=== PATIENT | male | born 1965 | race Caucasian/White ===

== ENCOUNTER → 2021-12-29 13:24 | Outpatient (BNVA) | payer OTHER, BC, SELFPAY | PROVIDERS: Visit Provider Family Medicine | DX: S59.902A Unspecified injury of left elbow, initial encounter (principal); W19.XXXA Unspecified fall, initial encounter | CPT/HCPCS: 73080 ==

== ENCOUNTER → 2022-09-20 13:02 | Outpatient (BNVA) | payer SELFPAY | PROVIDERS: PCP Family Medicine; Visit Provider Registered Nurse Neonatal Intensive Care | DX: M17.11 Unilateral primary osteoarthritis, right knee (principal); M25.561 Pain in right knee | CPT/HCPCS: 73562 ==

== ENCOUNTER → 2024-06-18 15:29 | Outpatient (BNVA) | payer SELFPAY | DX: I10 Essential (primary) hypertension (principal); R35.1 Nocturia | CPT/HCPCS: 80053; 80061; 83036; 84443; 85025; G0103 ==

== ENCOUNTER 2024-07-30 17:16 | Emergency (ER) | payer SELFPAY ==
[2024-07-30] VITALS (7 sets, daily range): BP systolic 185–223; BP diastolic 104–123; PULSE 60–71; RESP 16–18; TEMP 36.9; O2SAT 96–98; BMI 31.6
--- NOTE | 2024-07-30 17:17 | XRR_ITS ---
PROCEDURE INFORMATION: Exam: XR Chest Exam date and time: 07/30/2024 5:37 PM Age: 59 years old Clinical indication: Dyspnea; Additional info: Cp, uneasy feeling in chest TECHNIQUE: Imaging protocol: Radiologic exam of the chest. Views: 1 view. COMPARISON: CT kidney stone [id number] 03/06/2019 8:53 AM FINDINGS: Lungs: Unremarkable. No consolidation. Pleural spaces: Unremarkable. No pleural effusion. No pneumothorax. Heart/Mediastinum: Magnified by technique, likely mild cardiomegaly. PA and lateral views would be helpful for further assessment. Bones/joints: Unremarkable. XR/XR chest 1V portable [id number] IMPRESSION: Probable mild cardiomegaly. No other significant plain radiographic abnormality.
--- NOTE | 2024-07-30 17:23 | ECG_ITS ---
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 Measurements Intervals [place] Rate: 69 P: 28 SC: 154 QRS: -15 QRSD: 90 T: 30 QT: 376 QTc: 405 Interpretive Statements SINUS RHYTHM No previous ECG available for comparison Electronically Signed On 07-31-2024 21:16:44 PRODUCTION POTTER by Natanael Rodriguez M.D. [id number]
--- NOTE | 2024-07-30 17:32 | CTR_ITS ---
PROCEDURE INFORMATION: Exam: CT Lumbar Spine Without Contrast Exam date and time: 07/30/2024 6:26 PM Age: 59 years old Clinical indication: Numbness; Additional info: Rightt arm and leg numbness TECHNIQUE: Imaging protocol: Computed tomography of the lumbar spine without contrast. Radiation optimization: All CT scans at this facility use at least one of these dose optimization techniques: automated exposure control; mA and/or kV adjustment per patient size (includes targeted exams where dose is matched to clinical indication); or iterative reconstruction. COMPARISON: CT kidney stone [id number] 03/06/2019 8:53 AM RADIATION DOSE METRICS: Total DLP (mGy-cm): 1030.22 FINDINGS: Bones/joints: moderate sclerosis of the right SI joint is unchanged from 03/06/2019. Mild involvement of the left SI joint also noted. Mild levoscoliosis at L3 level is unchanged. L1-L2: Mild annular disc bulge, facet arthropathy and ligamentum hypertrophy contributing to mild central canal and bilateral foraminal stenosis. L2-L3: Moderate annular disc bulge and mild facet arthropathy and ligamentum hypertrophy contributing to moderate to high-grade central canal stenosis and subarticular stenosis with shpk-fz-vvaaucox foraminal stenosis and abutment of the exiting right L2 nerve root. L3-L4: Moderate calcified disc osteophyte complex and ligamentum hypertrophy as well as mild facet arthropathy resulting in moderate to high-grade canal stenosis and right greater than left foraminal stenosis with a abutment of the exiting L3 roots especially on the right. L4-L5: Tvkc-wt-ksbmlggc annular disc bulge and ligamentum hypertrophy and mild facet arthropathy contributing to moderate high-grade central canal stenosis and right greater than left foraminal stenosis abutment of the exiting nerve roots. L5-S1: Mild to moderate calcified disc osteophyte complex and facet arthropathy resulting in eguu-vq-nofubqqk canal stenosis, moderate left greater than right subarticular recess and foraminal stenosis with abutment of the exiting nerve roots. Pancreas: Partially imaged moderate punctate calcific pancreatitis similar to the prior study. Kidneys and ureters: 2.3 x 1.9 cm partially exophytic simple cyst in the upper pole of the right kidney is mildly enlarged compared to 03/06/2019. Additional partially exophytic 1.2 x 1.1 cm cyst in the upper pole has also enlarged. Vasculature: Knqv-oz-kvvqtquv atherosclerotic involvement of the renal arteries and celiac trunk and SMA ostia. Soft tissues: Unremarkable. CT/CT lumbar spine wo con* [id number] IMPRESSION: 1. Multilevel degenerative endplate spurring, annular disc bulges and ligamentum hypertrophy with moderate to high-grade canal and foraminal stenosis with abutment of exiting nerve roots from L2-S1 levels. The findings appear further progressed from 03/06/2019 CT. 2. Mild stable scoliosis and other chronic findings detailed above. COMMENTS: Consistent with the [employer]'s Incidental Findings Committee white paper (J Am Teresita Radiol 2018): Any incidental renal lesion less than 1 cm or classified as too small to characterize, or any incidental cystic renal lesion characterized as simple-appearing, is likely benign. No follow-up imaging is recommended for these lesions per consensus recommendations based on imaging criteria.
--- NOTE | 2024-07-30 17:32 | CTR_ITS ---
PROCEDURE INFORMATION: Exam: CT Head Without Contrast Exam date and time: 07/30/2024 6:22 PM Age: 59 years old Clinical indication: Weakness, extremity; Right; Additional info: Possible stroke TECHNIQUE: Imaging protocol: Computed tomography of the head without contrast. Radiation optimization: All CT scans at this facility use at least one of these dose optimization techniques: automated exposure control; mA and/or kV adjustment per patient size (includes targeted exams where dose is matched to clinical indication); or iterative reconstruction. COMPARISON: No relevant prior studies available. RADIATION DOSE METRICS: Total DLP (mGy-cm): 1131.38 FINDINGS: Brain: Right internal capsule anterior limb chronic lacunar infarct. Moderate diffuse white matter disease likely reflecting chronic microvascular ischemic changes. Cerebral ventricles: No ventriculomegaly. Paranasal sinuses: Paranasal sinus opacifications. Mastoid air cells: Visualized mastoid air cells are well aerated. Bones: Unremarkable. No acute fracture. Soft tissues: Right posterior scalp soft tissue swelling. CT/CT head wo con* [id number] IMPRESSION: 1. Negative for intracranial hemorrhage or mass effect. 2. Right internal capsule anterior limb chronic lacunar infarct. 3. Right posterior scalp soft tissue swelling. 4. Moderate diffuse white matter disease likely reflecting chronic microvascular ischemic changes. 5. Paranasal sinus opacifications.
--- NOTE | 2024-07-30 17:38 | W.ED.CHESTPA ---
HPI - Chest Pain General: Chief Complaint: Chest Pain Stated Complaint: chest pain Time Seen by Provider: 07/30/24 17:26 History of Present Illness: 59-year-old male with history of anxiety, depression and hypertension who presents to the emergency room with right sided chest pain and tingling in his right arm and right leg. This has been going on since 9 AM today. So approximately 8 hours. He is quite hypertensive on presentation. He is not having cough. No headache. No altered mental status. No slurred speech. No focal motor deficits. He is not short of breath. No abdominal pain. No nausea or vomiting. Related Data Previous Rx's Medication Instructions Recorded doxycycline hyclate 100 mg tablet 100 mg PO BID 14 days #28 tabs 06/05/24 citalopram 10 mg tablet (Celexa) 10 mg PO DAILY #30 tabs 06/18/24 hydroxyzine HCl 25 mg tablet 25 mg PO Q6H PRN anxiety #90 tabs 06/18/24 lisinopril 10 mg tablet 10 mg PO DAILY #30 tabs 06/18/24 terbinafine HCl 1 % topical cream 1 applic topical BID #15 grams 06/18/24 (Antifungal (terbinafine)) clonidine HCl 0.1 mg tablet 0.1 mg PO Q8H PRN hypertensive 07/30/24 emergency #20 tabs Allergies Allergy/AdvReac Type Severity Reaction Status Date / Time No Known Allergies Allergy Verified 06/18/24 14:45 Review of Systems Narrative: Constitutional symptoms: Negative except as documented in HPI. Skin symptoms: Negative except as documented in HPI. Eye symptoms: Negative except as documented in HPI. ENMT symptoms: Negative except as documented in HPI. Respiratory symptoms: Negative except as documented in HPI. Cardiovascular symptoms: Negative except as documented in HPI. Gastrointestinal symptoms: Negative except as documented in HPI. Genitourinary symptoms: Negative except as documented in HPI. Musculoskeletal symptoms: Negative except as documented in HPI. Neurologic symptoms: Negative except as documented in HPI. Psychiatric symptoms: Negative except as documented in HPI. Endocrine symptoms: Negative except as documented in HPI. [facility] PFSH: Medical History Tinea corporis Nocturia Hypertension Anxiety Rash of face Social History Smoking and tobacco/nicotine status: current every day tobacco/nicotine user Alcohol intake: never Substance/Drug Use: never Adopted: No Physical Exam Narrative: EXAM NARRATIVE: General: Alert, no acute distress. Skin: Warm, dry. Head: Normocephalic, atraumatic. Neck: Supple, trachea midline. Eye: Extraocular movements are intact. Ears, nose, mouth and throat: mucosa moist. Cardiovascular: Regular, Normal peripheral perfusion. Respiratory: Lungs are clear to auscultation, respirations are non-labored, breath sounds are equal, Symmetrical chest wall expansion. Gastrointestinal: Soft, Nontender, Non distended Musculoskeletal: Normal ROM, no deformity. Neurological: Alert and oriented, No focal neurological deficit observed. Psychiatric: Cooperative, appropriate mood & affect. Course Vital Signs: Vital signs: Vital Signs Temperature 98.5 F 07/30/24 17:31 Pulse Rate 60 07/30/24 19:17 Respiratory Rate 18 07/30/24 19:17 Blood Pressure 185/108 07/30/24 19:57 Pulse Oximetry 98 07/30/24 19:17 Oxygen Delivery Me thod Room Air 07/30/24 17:31 MDM - Chest Pain Medical Decision Making Differential diagnosis for patient with chest pain includes but is not limited to and based on the above HPI, review of systems and physical exam: Pneumonia. unstable angina. angina. Acute coronary syndrome / OK. Pulmonary embolism. Costochondritis / musculoskeletal. Pleurisy. Pericarditis. Esophageal spasm. Pancreatis. Cholecystitis. Orders placed to evaluate differential diagnosis based on the above differential, HPI and physical exam EKG: Time 1723. Rate 69. Normal sinus rhythm, No ST-T changes, no ectopy, normal MS & QRS intervals, This was reviewed and interpreted by myself the ER physician at 1727 Chest x-ray: No acute process. No infiltrate. No pneumothorax. This was reviewed and interpreted by myself the ER physician. CT head: No acute intracranial process. There is a small right-sided lacunar infarct. Discussed this with the patient. No intracranial hemorrhage, no evidence of infarct. no evidence of acute fracture.This was reviewed and interpreted by myself the ER physician. CT of the cervical spine: No fracture. Good alignment. No step-offs. This was reviewed and interpreted by myself the emergency room physician. I also reviewed the radiologist report. CT of the lumbar spine: Extensive degenerative changes. No fracture. Good alignment. No step-offs. This was reviewed and interpreted by myself the emergency room physician. Lab Review: Laboratory results were reviewed and interpreted by myself the emergency room physician. Lab work is unremarkable. No leukocytosis. No anemia. No renal failure. Troponin is negative. Chest pain is right-sided. I reviewed the patient's medical record. Reexamination: Patient remained stable. No increased work of breathing. No altered mental status. No focal motor deficits. Blood pressure has improved some with clonidine. Patient is asymptomatic at discharge. No more pain in his chest. No paresthesia. Assessment and plan: Paresthesia Hypertension Noncardiac chest pain - Discharged home - Discussed plan with patient. Answered any questions. - Evaluation and treatment of this problem were appropriate in the emergency setting. Lab Data 07/30/24 17:47 07/30/24 17:47 Radiology Impressions Chest X-Ray 07/30/24 17:17 IMPRESSION: Probable mild cardiomegaly. No other significant plain radiographic abnormality. Head CT 07/30/24 17:32 IMPRESSION: 1. Negative for intracranial hemorrhage or mass effect. 2. Right internal capsule anterior limb chronic lacunar infarct. 3. Right posterior scalp soft tissue swelling. 4. Moderate diffuse white matter disease likely reflecting chronic microvascular ischemic changes. 5. Paranasal sinus opacifications. Lumbar Spine CT 07/30/24 17:32 IMPRESSION: 1. Multilevel degenerative endplate spurring, annular disc bulges and ligamentum hypertrophy with moderate to high-grade canal and foraminal stenosis with abutment of exiting nerve roots from L2-S1 levels. The findings appear further progressed from 03/06/2019 CT. 2. Mild stable scoliosis and other chronic findings detailed above. COMMENTS: Consistent with the [employer]'s Incidental Findings Committee white paper (J Am Teresita Radiol 2018): Any incidental renal lesion less than 1 cm or classified as too small to characterize, or any incidental cystic renal lesion characterized as simple-appearing, is likely benign. No follow-up imaging is recommended for these lesions per consensus recommendations based on imaging criteria. Cervical Spine CT 07/30/24 18:41 IMPRESSION: Negative for fracture or dislocation. Laboratory Results WBC 8.19 10^3/uL (3.29-11.43) 07/30/24 17:47 RBC 5.75 10^6/uL (3.85-5.65) H 07/30/24 17:47 Hgb 17.80 g/dL (11.27-16.99) H 07/30/24 17:47 Hct 53.4 % (37-53) H 07/30/24 17:47 MCV 92.9 fl (82-101) 07/30/24 17:47 MCH 31.0 pg (27-33) 07/30/24 17:47 MCHC 33.3 g/dL (30-55) 07/30/24 17:47 RDW 13.9 % (12.1-15.1) 07/30/24 17:47 Plt Count 184 10^3/cmm (157-399) 07/30/24 17:47 MPV 10.9 fL (7.4-10.4) H 07/30/24 17:47 Neut % (Auto) 51.7 % 07/30/24 17:47 Lymph % (Auto) 36.4 % 07/30/24 17:47 [place] % (Auto) 7.9 % 07/30/24 17:47 Eos % (Auto) 2.1 % 07/30/24 17:47 Baso % (Auto) 1.5 % 07/30/24 17:47 Neut # (Auto) 4.24 10^3/uL (1.8-7.7) 07/30/24 17:47 Lymph # (Auto) 3.0 10^3/uL (0.8-4.8) 07/30/24 17:47 [place] # (Auto) 0.7 10^3/uL (0.2-0.9) 07/30/24 17:47 Eos # (Auto) 0.2 10^3/uL (0.0-0.8) 07/30/24 17:47 Baso # (Auto) 0.1 10^3/uL (0.0-0.1) 07/30/24 17:47 Nucleated RBC % (auto) 0 % 07/30/24 17:47 Nucleated RBCs # 0.0 /100WBC 07/30/24 17:47 PT 12.90 SECONDS (12.1-14.9) 07/30/24 17:47 INR 0.94 (0.8-1.2) 07/30/24 17:47 Sodium 139 mmol/L (136-145) 07/30/24 17:47 Potassium 4.2 mmol/L (3.5-5.1) 07/30/24 17:47 Chloride 103 mmol/L (98-107) 07/30/24 17:47 Carbon Dioxide 26 mmol/L (22-29) 07/30/24 17:47 Anion Gap 14.2 (5-19) 07/30/24 17:47 BUN 13 mg/dL (6-20) 07/30/24 17:47 Creatinine 0.9 mg/dL (0.7-1.2) 07/30/24 17:47 GFR Calculation 86.4 mL/min (90-130) L 07/30/24 17:47 Glucose 102 mg/dL (65-115) 07/30/24 17:47 Calculated Osmolality 288 mOsm/kg (285-295) 07/30/24 17:47 Calcium 9.3 mg/dL (8.5-10.5) 07/30/24 17:47 Total Bilirubin 0.4 mg/dL (0.15-1.2) 07/30/24 17:47 AST 21 U/L (0-40) 07/30/24 17:47 ALT 29 U/L (0-41) 07/30/24 17:47 Alkaline Phosphatase 102 U/L (40-130) 07/30/24 17:47 Troponin T Baseline 12 ng/L (0-15) 07/30/24 17:47 Total Protein 6.1 g/dL (6.6-8.7) L 07/30/24 17:47 Albumin 4.4 g/dL (3.5-5.2) 07/30/24 17:47 Globulin 1.7 g/dL (1.3-4.6) 07/30/24 17:47 All radiology interpretation(s) finalized by discharge Discharge Plan Discharge Patient Disposition: Home Clinical Impression: Paresthesia, Non-cardiac chest pain, Accelerated hypertension Condition: Stable Prescriptions: New clonidine HCl 0.1 mg tablet 0.1 mg PO Q8H PRN (Reason: hypertensive emergency) Qty: 20 0RF Rx Instructions: For Systolic >185 diastolic >100 No Action doxycycline hyclate 100 mg tablet 100 mg PO BID 14 Days Qty: 28 0RF citalopram [Celexa] 10 mg tablet 10 mg PO DAILY Qty: 30 0RF hydroxyzine HCl 25 mg tablet 25 mg PO Q6H PRN (Reason: anxiety) Qty: 90 2RF lisinopril 10 mg tablet 10 mg PO DAILY Qty: 30 0RF Rx Instructions: start first terbinafine HCl [Antifungal (terbinafine)] 1 % cream 1 applic topical BID Qty: 15 0RF Discharge Orders: Discharge ED (Routine); Ordered 07/30/24 Ordered By: Carmella Grajeda Discharge Diet: Usual diet Discharge Activity: Increase activity as tolerated Patient Instructions: Paresthesia (ED), Hypertension (ED), Noncardiac Chest Pain (ED), Opioid Safety, Pain Management Activity Restrictions/Additional Instructions: Please follow-up with your primary provider in the next few days. You need to discuss findings on the CT of a possible old small stroke. Also you need to discuss your blood pressure. If her blood pressure remains elevated at home you can double your lisinopril to 20 mg daily. Thank you for choosing [facility] for your healthcare needs today. Please realize this is an emergency room and that we are providing you with a medical screening exam and this may not be complete and all inclusive of all the testing and or work up that you may need to determine your ailment or severity of your illness. You have been screened and evaluated and felt safe for discharge. Health conditions do change or evolve sometimes and as such it is important that you follow up with your Primary Doctor to be re checked, 3-5 days is a general good time frame for follow up. You are always welcome to return to the ED for re assessment if your symptoms are worsening or you have new concerns Coding Level of Care Code ED Mine Utility Operator for Lisset Rodriguez
[2024-07-30 18:06] LABS: Basophils # 0.1 10^3/uL (0.0-0.1); Basophils % 1.5 %; Eosinophils # 0.2 10^3/uL (0.0-0.8); Eosinophils % 2.1 %; Hematocrit 53.4 % (37-53); Lymphocytes % 36.4 %; Mean Corpuscular HGB Conc 33.3 g/dL (30-55); Mean Corpuscular Volume 92.9 fl (82-101); Mean Platelet Volume 10.9 fL (7.4-10.4); Monocytes # 0.7 10^3/uL (0.2-0.9); Monocytes % 7.9 %; Neutrophils # 4.24 10^3/uL (1.8-7.7); Neutrophils % 51.7 %; Nucleated Red Blood Cells % 0 %; Platelet Count 184 10^3/cmm (157-399); Red Blood Count 5.75 10^6/uL (3.85-5.65); Red Cell Distribution Width 13.9 % (12.1-15.1); White Blood Count 8.19 10^3/uL (3.29-11.43)
[2024-07-30 18:13] LABS: INR 0.94 (0.8-1.2)
[2024-07-30 18:17] LABS: Troponin(5th) Baseline 12 ng/L (0-15)
[2024-07-30 18:19] LABS: Alanine Aminotransferase 29 U/L (0-41); Albumin Level 4.4 g/dL (3.5-5.2); Alkaline Phosphatase 102 U/L (40-130); Aspartate Amino Transferase 21 U/L (0-40); Blood Urea Nitrogen 13 mg/dL (6-20); Calcium 9.3 mg/dL (8.5-10.5); Carbon Dioxide 26 mmol/L (22-29); Chloride 103 mmol/L (98-107); Creatinine Clr Calc Pharmacy 101.5595; Globulin 1.7 g/dL (1.3-4.6); Glomerular Filtration Rate 86.4 mL/min (90-130); Glucose 102 mg/dL (65-115); Osmolality Calculated 288 mOsm/kg (285-295); Sodium 139 mmol/L (136-145); Total Bilirubin 0.4 mg/dL (0.15-1.2); Total Protein 6.1 g/dL (6.6-8.7)
[2024-07-30 18:20] LABS: Anion Gap 14.2 (5-19); Potassium 4.2 mmol/L (3.5-5.1)
--- NOTE | 2024-07-30 18:41 | CTR_ITS ---
PROCEDURE INFORMATION: Exam: CT Cervical Spine Without Contrast Exam date and time: 07/30/2024 6:57 PM Age: 59 years old Clinical indication: Weakness; Additional info: Fall, neck pain TECHNIQUE: Imaging protocol: Computed tomography of the cervical spine without contrast. Radiation optimization: All CT scans at this facility use at least one of these dose optimization techniques: automated exposure control; mA and/or kV adjustment per patient size (includes targeted exams where dose is matched to clinical indication); or iterative reconstruction. COMPARISON: CT head wo con* [id number] 07/30/2024 6:22 PM RADIATION DOSE METRICS: Total DLP (mGy-cm): 225.47 FINDINGS: Bones/joints: Multilevel moderate to severe largely mid to lower cervical spine disc space narrowing and productive degenerative endplate changes. C2-C3: No significant disc bulge or herniation. No severe spinal canal stenosis. No significant neural foraminal narrowing. C3-C4: No significant disc bulge or herniation. No severe spinal canal stenosis. No significant neural foraminal narrowing. C4-C5: No significant disc bulge or herniation. No severe spinal canal stenosis. No significant neural foraminal narrowing. C5-C6: No significant disc bulge or herniation. No severe spinal canal stenosis. No significant neural foraminal narrowing. C6-C7: No significant disc bulge or herniation. No severe spinal canal stenosis. No significant neural foraminal narrowing. C7-T1: No significant disc bulge or herniation. No severe spinal canal stenosis. No significant neural foraminal narrowing. Lungs: Lung apices are normal. Vasculature: Carotid artery atherosclerotic calcifications. Soft tissues: Unremarkable. CT/CT cervical spin wo con* [id number] IMPRESSION: Negative for fracture or dislocation.
--- NOTE | 2024-07-30 19:17 | ECG_ITS ---
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
[2024-07-30] MEDS: cloNIDine 0.1 mg Tablet PO (19:57)
== END 2024-07-30 20:42 | disposition home or self-care (01) ==
PROVIDERS: Emergency Medicine; Emergency Provider Emergency Medicine
DX: R20.2 Paresthesia of skin (principal); R07.89 Other chest pain; I10 Essential (primary) hypertension; Z72.0 Tobacco use
CPT/HCPCS: 70450; 71045; 72125; 72131; 80053; 84484; 85025; 85610; 93005; 99285

== ENCOUNTER 2024-12-01 22:10 | Emergency (ER) | payer OTHER, SELFPAY ==
[2024-12-01 22:19] VITALS: BP 113/77; PULSE 82; RESP 16; TEMP 36.7; O2SAT 98
--- NOTE | 2024-12-01 22:38 | XRR_ITS ---
PROCEDURE INFORMATION: Exam: XR Chest Exam date and time: 12/01/2024 10:47 PM Age: 59 years old Clinical indication: Other: HX flu weakness; Additional info: Weak TECHNIQUE: Imaging protocol: Radiologic exam of the chest. Views: 1 view. COMPARISON: CR XR chest 1V portable [id number] 07/30/2024 5:37 PM FINDINGS: Lungs: Unremarkable. No consolidation. Pleural spaces: Unremarkable. No pleural effusion. No pneumothorax. Heart/Mediastinum: Unremarkable. No cardiomegaly. Bones/joints: Unremarkable. XR/XR chest 1V portable [id number] IMPRESSION: No acute findings.
--- NOTE | 2024-12-01 22:38 | ECG_ITS ---
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
[2024-12-01] MEDS: sodium chloride 0.9% 1,000 ML 999 ML IV (22:50)
[2024-12-01 22:57] LABS: Basophils # 0.1 10^3/uL (0.0-0.1); Basophils % 0.4 %; Eosinophils # 0.1 10^3/uL (0.0-0.8); Eosinophils % 0.9 %; Hematocrit 51.4 % (37-53); Lymphocytes # 2.4 10^3/uL (0.8-4.8); Lymphocytes % 17.2 %; Mean Corpuscular HGB Conc 33.5 g/dL (30-55); Mean Corpuscular Hemoglobin 30.1 pg (27-33); Mean Corpuscular Volume 89.9 fl (82-101); Mean Platelet Volume 9.9 fL (7.4-10.4); Monocytes # 1.2 10^3/uL (0.2-0.9); Monocytes % 8.7 %; Neutrophils # 9.85 10^3/uL (1.8-7.7); Neutrophils % 71.8 %; Nucleated Red Blood Cells % 0 %; Platelet Count 289 10^3/cmm (157-399); Red Blood Count 5.72 10^6/uL (3.85-5.65); Red Cell Distribution Width 14.4 % (12.1-15.1); White Blood Count 13.71 10^3/uL (3.29-11.43)
[2024-12-01 23:16] LABS: Alanine Aminotransferase 37 U/L (0-41); Albumin Level 3.3 g/dL (3.5-5.2); Alkaline Phosphatase 148 U/L (40-130); Anion Gap 18.5 (5-19); Aspartate Amino Transferase 21 U/L (0-40); Blood Urea Nitrogen 24 mg/dL (6-20); Calcium 8.9 mg/dL (8.5-10.5); Carbon Dioxide 25 mmol/L (22-29); Chloride 93 mmol/L (98-107); Creatinine Clr Calc Pharmacy 54.5757; Globulin 3.8 g/dL (1.3-4.6); Glomerular Filtration Rate 44.5 mL/min (90-130); Glucose 126 mg/dL (65-115); Magnesium 2.3 mg/dL (1.7-2.3); Osmolality Calculated 282 mOsm/kg (285-295); Potassium 3.5 mmol/L (3.5-5.1); Sodium 133 mmol/L (136-145); Total Bilirubin 1.1 mg/dL (0.15-1.2); Total Protein 7.1 g/dL (6.6-8.7)
--- NOTE | 2024-12-01 23:54 | W.ED.WEAKNES ---
HPI - Weakness General: Chief complaint: Weakness Stated complaint: Flu, Confused, Dizzy, Nausa,Weakness Time Seen by Provider: 12/01/24 22:29 Source: patient Mode of arrival: ambulatory Limitations: no limitations History of Present Illness: Patient is a 59-year-old male with a past medical history of hypertension and anxiety who presents to the emergency department complaining of weakness for the past 3 to 4 days. He states that he thinks he is dehydrated and he has been confused, stating that he will find himself taking medications but then forgetting what he just took. Notes that he recently was prescribed medications for nausea, unable to tell me to prescribe this. He has been taken Phenergan suppositories as well as Zofran but states he has still felt nauseous and has been vomiting. Denies any blood in his vomit, no diarrhea or hematochezia. Denies taking any other new medications recently. He is denying any shortness of breath, but states he does have a minor cough. No fever, chest pain, abdominal pain, dizziness, lightheadedness, gait disturbances, or other symptoms at this time. He did drive himself to the ED today. States that he did have the flu on 11/24. His vitals are within normal limits at this time. MD Complaint: generalized weakness Onset (ago): day(s) Duration: constant Location: generalized Relieving factors: none Exacerbating factors: none Associated symptoms: Reports confusion, nausea and vomiting; Denies chest pain, chills, dysuria, fever(s) or headache(s) Review of Systems General: Reports: 10 or more systems reviewed and unremarkable except in HPI and below Const: Denies: fever(s), chills or fatigue Eyes: Denies: change in vision ENMT: Denies: throat pain, ear or mastoid pain or nasal discharge Card: Denies: chest pain, palpitations, swelling of feet/ankles or lightheadedness Resp: Reports: non-productive cough; Denies: dyspnea, productive cough or wheezing GI: Reports: nausea and vomiting; Denies: abdominal pain, diarrhea or constipation : Denies: flank pain, difficulty urinating, dysuria or urinary frequency Musc: Denies: neck pain, back pain or joint pain Skin/Breast: Denies: rash Neuro: Reports: weakness in extremities and confusion; Denies: headache(s), numbness in extremities, sensory changes, lack of coordination, frequent falls, dizziness, Slurred speech present or seizure-like activity PFS ED PFSH: Medical History Tinea corporis Nocturia Hypertension Anxiety Rash of face Social History Smoking and tobacco/nicotine status: current every day tobacco/nicotine user Alcohol intake: never Substance/Drug Use: never Adopted: No Physical Exam Const: COMMON NORMALS: no acute distress, patient oriented x3 and no limitations GENERAL APPEARANCE: cooperative, comfortable and well developed ORIENTATION/CONSCIOUSNESS: Yes awake, Yes oriented to person, Yes oriented to place and Yes oriented to time HENMT: COMMON NORMALS: normocephalic, atraumatic and hearing grossly normal bilaterally HEAD & SCALP: normocephalic and atraumatic OTHER: Dry oral mucosa Eye: COMMON NORMALS: Equal, round and reactive pupils present and EOMs intact bilaterally CONJUNCTIVA: Yes conjunctival abnormal positive bilateral pallor PUPIL: Yes Equal, round and reactive pupils present Neck/C-Spine: COMMON NORMALS: full ROM, supple and no JVD Resp: COMMON NORMALS: normal respiratory effort, No retractions, No use of accessory muscles and clear to auscultation bilaterally AUSCULTATION: clear to auscultation bilaterally Cardio: COMMON NORMALS: no JVD, regular rate, regular rhythm, No clicks present (Cardio), No murmurs present (Cardio) and No rub (Cardio) RATE: regular rate RHYTHM: regular rhythm GI: COMMON NORMALS: Normal to inspection, nondistended, normoactive bowel sounds present, Soft to palpation and non-tender AUSCULTATION: Yes normoactive bowel sounds PALPATION: Yes Soft to palpation RECTAL EXAM: Yes deferred Extremity: COMMON NORMALS: normal to inspection, full ROM and capillary refill normal Neuro: COMMON NORMALS: patient oriented x3, CN's II-XII intact bilaterally, moves all extremities, no focal motor deficits and no sensory deficits noted SENSORIUM/ORIENTATION: Yes oriented to person, Yes oriented to place and Yes oriented to time Skin: COMMON NORMALS: no rashes or lesions noted GENERAL SKIN EXAM: no rashes or lesions noted Course Vital Signs: Vital signs: Vital Signs Temperature 98.0 F 12/01/24 22:19 Pulse Rate 78 12/02/24 02:33 Respiratory Rate 16 12/02/24 02:00 Blood Pressure 138/79 12/02/24 02:33 Pulse Oximetry 96 12/02/24 02:33 Oxygen Delivery Me thod Room Air 12/02/24 00:55 MDM - Weakness Medical Decision Making Patient had been weak for the past few days. Labs obtained showed mild elevation in his white count and increase in his kidney function. Was started on fluids as I suspected dehydration. Ultimately patient case turned over to Dr. Grajeda at shift change. Lab Data 12/01/24 22:50 12/01/24 22:50 Radiology Impressions Chest X-Ray 12/01/24 22:38 IMPRESSION: No acute findings. Laboratory Results WBC 13.71 10^3/uL (3.29-11.43) H 12/01/24 22:50 RBC 5.72 10^6/uL (3.85-5.65) H 12/01/24 22:50 Hgb 17.20 g/dL (11.27-16.99) H 12/01/24 22:50 Hct 51.4 % (37-53) 12/01/24 22:50 MCV 89.9 fl (82-101) 12/01/24 22:50 MCH 30.1 pg (27-33) 12/01/24 22:50 MCHC 33.5 g/dL (30-55) 12/01/24 22:50 RDW 14.4 % (12.1-15.1) 12/01/24 22:50 Plt Count 289 10^3/cmm (157-399) 12/01/24 22:50 MPV 9.9 fL (7.4-10.4) 12/01/24 22:50 Neut % (Auto) 71.8 % 12/01/24 22:50 Lymph % (Auto) 17.2 % 12/01/24 22:50 [place] % (Auto) 8.7 % 12/01/24 22:50 Eos % (Auto) 0.9 % 12/01/24 22:50 Baso % (Auto) 0.4 % 12/01/24 22:50 Neut # (Auto) 9.85 10^3/uL (1.8-7.7) H 12/01/24 22:50 Lymph # (Auto) 2.4 10^3/uL (0.8-4.8) 12/01/24 22:50 [place] # (Auto) 1.2 10^3/uL (0.2-0.9) H 12/01/24 22:50 Eos # (Auto) 0.1 10^3/uL (0.0-0.8) 12/01/24 22:50 Baso # (Auto) 0.1 10^3/uL (0.0-0.1) 12/01/24:50 Nucleated RBC % (auto) 0 % 12/01/24: Nucleated RBCs # 0.0 /100WBC 12/01/24 22:50 Sodium 133 mmol/L (136-145) L 12/01/24 22:50 Potassium 3.5 mmol/L (3.5-5.1) 12/01/24 22:50 Chloride 93 mmol/L (98-107) L 12/01/24 22:50 Carbon Dioxide 25 mmol/L (22-29) 12/01/24 22:50 Anion Gap 18.5 (5-19) 12/01/24:50 BUN 24 mg/dL (6-20) H 12/01/24 22:50 Creatinine 1.6 mg/dL (0.7-1.2) H 12/01/24 22:50 GFR Calculation 44.5 mL/min (90-130) L 12/01/24 22:50 Glucose 126 mg/dL (65-115) H 12/01/24 22:50 Calculated Osmolality 282 mOsm/kg (285-295) L 12/01/24 22:50 Lactic Acid 0.9 mmol/L (0.5-2.2) 12/02/24 01:03 Calcium 8.9 mg/dL (8.5-10.5) 12/01/24:50 Magnesium 2.3 mg/dL (1.7-2.3) 12/01/24 22:50 Total Bilirubin 1.1 mg/dL (0.15-1.2) 12/01/24 22:50 AST 21 U/L (0-40) 12/01/24 22:50 ALT 37 U/L (0-41) 03/10/25 22:50 Alkaline Phosphatase 148 U/L (40-130) H 12/01/24 22:50 C-Reactive Protein 143.1 mg/L (0.0-4.9) H 12/02/24 00:55 Total Protein 7.1 g/dL (6.6-8.7) 12/01/24 22:50 Albumin 3.3 g/dL (3.5-5.2) L 12/01/24 22:50 Globulin 3.8 g/dL (1.3-4.6) 12/01/24 22:50 Procalcitonin 0.12 ng/mL (0-0.5) 12/02/24 00:55 Urine Color Yellow (Yellow) 12/02/24 00:41 Urine Appearance Clear (CLEAR) 12/02/24 00:41 Urine pH 5.5 (5-7) 12/02/24 00:41 Ur Specific [place] 1.010 (1.005-1.030) 12/02/24 00:41 Urine Protein 1+ (Negative) A 12/02/24 00:41 Urine Glucose (UA) Negative (Normal) 12/02/24 00:41 Urine Ketones Trace (Negative) 12/02/24 00:41 Urine Blood Negative (Negative) 12/02/24 00:41 Urine Nitrate Negative (Negative) 12/02/24 00:41 Urine Bilirubin Negative (Negative) 12/02/24 00:41 Urine Urobilinogen 1.0 mg/dL (Negative) 12/02/24 00:41 Ur Leukocyte Esterase Negative (Negative) 12/02/24 00:41 Urine RBC 0-2 /hpf (0-2) 12/02/24 00:41 Urine WBC 0-5 /hpf (0-5) 12/02/24 00:41 Ur Squamous Epith Cells 0-5 /hpf (0-5) 12/02/24 00:41 Amorphous Sediment Not Reportable 12/02/24 00:41 Urine Bacteria None seen /hpf (NONE) 12/02/24 00:41 Hyaline Casts 16.53 /lpf 12/02/24 00:41 Influenza A (PCR) Negative (Negative) 12/02/24 00:02 Influenza Type B (PCR) Negative (Negative) 12/02/24 00:02 RSV (PCR) Negative (Negative) 12/02/24 00:02 SARS-CoV-2 (PCR) Negative (Negative) 12/02/24 00:02 All radiology interpretation(s) finalized by discharge Discharge Plan Discharge Patient Disposition: Home Clinical Impression: Dehydration, Acute renal insufficiency, Weakness Condition: Stable Prescriptions: No Action doxycycline hyclate 100 mg tablet 100 mg PO BID 14 Days Qty: 28 0RF citalopram [Celexa] 10 mg tablet 10 mg PO DAILY Qty: 30 0RF hydroxyzine HCl 25 mg tablet 25 mg PO Q6H PRN (Reason: anxiety) Qty: 90 2RF terbinafine HCl [Antifungal (terbinafine)] 1 % cream 1 applic topical BID Qty: 15 0RF lisinopril 10 mg tablet See Rx Instructions .ROUTE .COMPLEX Qty: 30 0RF Dose Instruction: TAKE 1 TABLET BY MOUTH ONCE DAILY (START FIRST) Rx Instructions: TAKE 1 TABLET BY MOUTH ONCE DAILY (START FIRST) clonidine HCl 0.1 mg tablet 0.1 mg PO Q8H PRN (Reason: hypertensive emergency) Qty: 20 0RF Rx Instructions: For Systolic >185 diastolic >100 Discharge Orders: Discharge ED (Routine); Ordered 12/02/24 Ordered By: Carmella Grajeda Discharge Diet: Advance as tolerated Discharge Activity: Increase activity as tolerated Patient Instructions: Opioid Safety, Pain Management Activity Restrictions/Additional Instructions: Thank you for choosing [facility] for your healthcare needs today. Please realize this is an emergency room and that we are providing you with a medical screening exam and this may not be complete and all inclusive of all the testing and or work up that you may need to determine your ailment or severity of your illness. You have been screened and evaluated and felt safe for discharge. Health conditions do change or evolve sometimes and as such it is important that you follow up with your Primary Doctor to be re checked, 3-5 days is a general good time frame for follow up. You are always welcome to return to the ED for re assessment if your symptoms are worsening or you have new concerns Stand Alone Forms: Work/School Release Print Language: Botswanan Coding Level of Care Code ED Tax Examining Technician for Kristieg Fwd Related Data Previous Rx's ?Medication ?Instructions ?Recorded doxycycline hyclate 100 mg tablet 100 mg PO BID 14 days #28 tabs 06/05/24 citalopram 10 mg tablet (Celexa) 10 mg PO DAILY #30 tabs 06/18/24 hydroxyzine HCl 25 mg tablet 25 mg PO Q6H PRN anxiety #90 tabs 06/18/24 terbinafine HCl 1 % topical cream 1 applic topical BID #15 grams 06/18/24 (Antifungal (terbinafine)) clonidine HCl 0.1 mg tablet 0.1 mg PO Q8H PRN hypertensive 07/30/24 emergency #20 tabs lisinopril 10 mg tablet See Rx Instructions .Route 10/07/24 .COMPLEX #30 tabs Allergies Allergy/AdvReac Type Severity Reaction Status Date / Time No Known Allergies Allergy Verified 12/01/24 22:28
[2024-12-02] MEDS: sodium chloride 0.9% 1,000 ML 999 ML IV (00:09)
[2024-12-02 00:47] LABS: Influenza A NEGATIVE (Negative); Influenza B NEGATIVE (Negative); Respiratory Syncytial Virus Ce NEGATIVE (Negative); SARS-CoV-2 PCR NEGATIVE (Negative)
[2024-12-02 00:48] LABS: Bilirubin Urine Negative (Negative); Blood Urine Negative (Negative); Glucose Urine UA Negative (Normal); Ketones Urine Trace (Negative); Leukocyte Esterase Urine Negative (Negative); Nitrate Urine Negative (Negative); Protein Urine 1+ (Negative); Urine Appearance Clear (CLEAR); Urine Color Yellow (Yellow); pH Urine 5.5 (5-7)
[2024-12-02 00:50] LABS: Add Urine Microscopic? YES; Bacteria Urine None Seen /hpf; Hyaline Casts Urine 16.53 /lpf; RBC Urine 0-2 /hpf (0-2); Squamous Epithelial Cell Urine 0-5 /hpf (0-5); WBC Urine 0-5 /hpf (0-5)
[2024-12-02 00:55] VITALS: PULSE 59; RESP 16; O2SAT 96
[2024-12-02 00:58] LABS: UA Slide Review UA Slide Review Perf
[2024-12-02 01:00] VITALS: PULSE 67; RESP 18; O2SAT 95
[2024-12-02 01:35] LABS: Lactic Sepsis W/Reflex 0.9 mmol/L (0.5-2.2)
[2024-12-02 01:36] LABS: C Reactive Protein 143.1 mg/L (0.0-4.9)
[2024-12-02 01:41] LABS: Procalcitonin 0.12 ng/mL (0-0.5)
[2024-12-02 02:00] VITALS: BP 121/79; PULSE 60; RESP 16; O2SAT 96
[2024-12-02 02:33] VITALS: BP 138/79; PULSE 78; O2SAT 96
== END 2024-12-02 02:35 | disposition home or self-care (01) ==
PROVIDERS: Physician Assistant; Emergency Provider Emergency Medicine
DX: E86.0 Dehydration (principal); N28.9 Disorder of kidney and ureter, unspecified; R53.1 Weakness; Z11.52 Encounter for screening for COVID-19; Z72.0 Tobacco use; I10 Essential (primary) hypertension
CPT/HCPCS: 36415; 71045; 80053; 81001; 83605; 83735; 84145; 85025; 86140; 87040; 87637; 93005; 96360; 96361; 99285; J7030

== ENCOUNTER 2025-05-11 09:24 | Emergency (ER) | payer OTHER, SELFPAY ==
[2025-05-11] VITALS (11 sets, daily range): BP systolic 82–164; BP diastolic 58–95; PULSE 65–95; RESP 18; TEMP 36.8; O2SAT 96–100
--- NOTE | 2025-05-11 09:25 | CT_ITS ---
WS: [id number] CT scan of the head, 05/11/2025 Clinical Data: Symptoms of acute stroke Comparison: CT head, 07/30/2024 DLP: 1120.[address] scans at [facility] use at least one of these dose optimization techniques: automated exposure control; mA and/or kV adjustment per patient size (includes targeted exams where dose is matched to clinical indication); or iterative reconstruction. Findings: The ventricular system is minimally dilated without shift. No recent infarct or hemorrhage is seen. There is an old right lacunar infarct unchanged. There are no abnormal intracerebral masses. The cerebellum and brainstem are not remarkable. Bony windows of the skull and skull base show no fractures or erosions. The mastoid air cells, internal auditory canals, sella turcica and intraorbital contents are unremarkable. There are polyps of the maxillary sinuses. CT/CT head thrombolytic 03974 Impression: 1. Negative for acute intracranial hemorrhage or infarct. 2. Old right lacunar infarct.
--- NOTE | 2025-05-11 09:31 | ECG_ITS ---
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 Measurements Intervals [place] Rate: 97 P: 42 MT: 142 QRS: 8 QRSD: 82 T: 46 QT: 326 QTc: 415 Interpretive Statements SINUS RHYTHM WITH OCCASIONAL SUPRAVENTRICULAR PREMATURE COMPLEXES POSSIBLE LEFT ATRIAL ENLARGEMENT [-0.1mV P-WAVE IN V1/V2] Compared to ECG 12/02/2024 00:41:47 Sinus bradycardia no longer present Electronically Signed On 05-16-2025 09:18:15 CDT by Natanael Rodriguez M.D. [email or web address]
[2025-05-11 09:49] LABS: Hematocrit 47.9 % (37-53); Hemoglobin 15.90 g/dL (11.27-16.99); Mean Corpuscular HGB Conc 33.2 g/dL (30-55); Mean Corpuscular Hemoglobin 29.7 pg (27-33); Mean Corpuscular Volume 89.5 fl (82-101); Nucleated Red Blood Cells % 0 %; Platelet Count 256 10^3/cmm (157-399); Red Blood Count 5.35 10^6/uL (3.85-5.65); White Blood Count 13.31 10^3/uL (3.29-11.43)
--- NOTE | 2025-05-11 10:04 | W.ED.NEUROSD ---
HPI - Neuro Symptoms/Deficit General: Chief Complaint: Neuro Symptoms/Deficit Stated Complaint: kirby ornelas sent, R side numbness, confusion Time Seen by Provider: 05/11/25 09:25 History of Present Illness: 60-year-old male presents emergency room with right sided numbness and some confusion. 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 Patient states he has not been able to hold down solid foods for the last several days he has been able to drink. He has lost 40 pounds this year with no effort. Associated symptoms: Deny chest pain Related Data Home Medications ?Medication ?Instructions ?Recorded ?Confirmed citalopram 20 mg tablet 20 mg PO DAILY 05/11/25 05/11/25 methocarbamol 750 mg tablet 750 mg PO TID PRN Muscle Spasm 05/11/25 05/11/25 promethazine 25 mg rectal 25 mg [place] Q8H PRN Constipation 05/11/25 05/11/25 suppository Previous Rx's ?Medication ?Instructions ?Recorded hydroxyzine HCl 25 mg tablet 25 mg PO Q6H PRN anxiety #90 tabs 06/18/24 Allergies Allergy/AdvReac Type Severity Reaction Status Date / Time No Known Allergies Allergy Verified 12/01/24 22:28 Review of Systems Const: Denies: fever(s) or chills Card: Denies: chest pain Resp: Denies: dyspnea GI: Denies: abdominal pain : Denies: dysuria, urinary frequency or urinary urgency Musc: Denies: neck pain or back pain Skin/Breast: Denies: rash [facility] ED PFSH: Medical History Tinea corporis Nocturia Hypertension Anxiety Rash of face Social History Smoking and tobacco/nicotine status: current every day tobacco/nicotine user Alcohol intake: never Substance/Drug Use: never Adopted: No NIH stroke score NIHSS: Level Of Consciousness - 1a: 0 Level Of Consciousness Questions - 1b: Both Correct Level Of Consciousness Commands - 1c: Both Correct Best Gaze - 2: Normal Visual [place] - 3: No Visual Loss Facial Palsy - 4: Normal Motor Arm Right - 5: No Drift Motor Arm Left - 5: No Drift Motor Leg Right - 6: No Drift Motor Leg Left - 6: No Drift Limb Ataxia - 7: Absent Sensory - 8: Normal Best Language - 9: No Aphasia Dysarthia - 10: Normal Extinction And Inattention - 11: 0 Score: Total Score: 0 Physical Exam Const: COMMON NORMALS: no acute distress GENERAL APPEARANCE: cooperative and comfortable ORIENTATION/CONSCIOUSNESS: Yes awake, Yes oriented to person, Yes oriented to place and Yes oriented to time HENMT: COMMON NORMALS: normocephalic, atraumatic and hearing grossly normal bilaterally HEAD & SCALP: normocephalic and atraumatic Resp: COMMON NORMALS: normal respiratory effort, No retractions, No use of accessory muscles and clear to auscultation bilaterally AUSCULTATION: clear to auscultation bilaterally Cardio: COMMON NORMALS: regular rate, regular rhythm and No murmurs present (Cardio) RATE: regular rate RHYTHM: regular rhythm GI: COMMON NORMALS: Soft to palpation and No hepatosplenomegaly present AUSCULTATION: Yes normoactive bowel sounds PALPATION: Yes Soft to palpation, No Tenderness to palpation present (GI), No Guarding due to palpation present (GI) and Yes No hepatosplenomegaly present Extremity: COMMON NORMALS: normal to inspection, capillary refill normal, no clubbing, cyanosis or edema, no calf tenderness and no pedal edema Neuro: SENSORIUM/ORIENTATION: Yes oriented to person, Yes oriented to place and Yes oriented to time Skin: COMMON NORMALS: no rashes or lesions noted GENERAL SKIN EXAM: no rashes or lesions noted Course Vital Signs: Vital signs: Vital Signs Temperature 98.3 F 05/11/25 09:27 Pulse Rate 78 05/11/25 13:23 Respiratory Rate 18 05/11/25 10:01 Blood Pressure 125/85 05/11/25 13:23 Pulse Oximetry 98 05/11/25 13:23 Oxygen Delivery Me thod Room Air 05/11/25 12:39 MDM - Neuro Symptoms/Deficit Medical Decision Making Labs and imaging unremarkable CT head negative on exam NIH was 0 patient's last known well was essentially almost a week ago. He does have positive orthostatics this improved with IV fluids will discharge patient home have him stop his lisinopril and follow-up with his primary care doctor return if he has further problems. Medical Records I reviewed the patient's medical records. Lab Data I reviewed the patient's lab results. 05/11/25 09:40 05/11/25 09:[address] 05/11/25 09:25 Impression: 1. Negative for acute intracranial hemorrhage or infarct. 2. Old right lacunar infarct. Laboratory Results WBC 13.31 10^3/uL (3.29-11.43) H 05/11/25 09:40 RBC 5.35 10^6/uL (3.85-5.65) 05/11/25 09:40 Hgb 15.90 g/dL (11.27-16.99) 05/11/25 09:40 Hct 47.9 % (37-53) 05/11/25 09:40 MCV 89.5 fl (82-101) 05/11/25 09:40 MCH 29.7 pg (27-33) 05/11/25 09:40 MCHC 33.2 g/dL (30-55) 05/11/25 09:40 RDW 15.9 % (12.1-15.1) H 05/11/25 09:40 Plt Count 256 10^3/cmm (157-399) 05/11/25 09:40 MPV 10.8 fL (7.4-10.4) H 05/11/25 09:40 Neut % (Auto) 77.2 % 05/11/25 09:40 Lymph % (Auto) 14.2 % 05/11/25 09:40 [place] % (Auto) 7.4 % 05/11/25 09:40 Eos % (Auto) 0.2 % 05/11/25 09:40 Baso % (Auto) 0.5 % 05/11/25 09:40 Neut # (Auto) 10.27 10^3/uL (1.8-7.7) H 05/11/25 09:40 Lymph # (Auto) 1.9 10^3/uL (0.8-4.8) 05/11/25 09:40 [place] # (Auto) 1.0 10^3/uL (0.2-0.9) H 05/11/25 09:40 Eos # (Auto) 0.0 10^3/uL (0.0-0.8) 05/11/25 09:40 Baso # (Auto) 0.1 10^3/uL (0.0-0.1) 05/11/25 09:40 Nucleated RBC % (auto) 0 % 05/11/25 09:40 Nucleated RBCs # 0.0 /100WBC 05/11/25 09:40 PT 14.00 SECONDS (12.1-14.9) 05/11/25 09:40 INR 1.01 (0.8-1.2) 05/11/25 09:40 APTT 27.0 SECONDS (23.9-36.7) 05/11/25 09:40 Sodium 131 mmol/L (136-145) L 05/11/25 09:40 Potassium 3.8 mmol/L (3.5-5.1) 05/11/25 09:40 Chloride 92 mmol/L (98-107) L 05/11/25 09:40 Carbon Dioxide 29 mmol/L (22-29) 05/11/25 09:40 Anion Gap 13.8 (5-19) 05/11/25 09:40 BUN 21 mg/dL (8-23) 05/11/25 09:40 Creatinine 1.4 mg/dL (0.7-1.2) H 05/11/25 09:40 GFR Calculation 51.7 mL/min (90-130) L 05/11/25 09:40 Glucose 114 mg/dL (65-115) 05/11/25 09:40 POC Glucose 105 mg/dL (70-110) 05/11/25 09:56 Calculated Osmolality 276 mOsm/kg (285-295) L 05/11/25 09:40 Calcium 9.6 mg/dL (8.5-10.5) 05/11/25 09:40 Total Bilirubin 1.0 mg/dL (0.15-1.2) 05/11/25 09:40 AST 12 U/L (0-40) 05/11/25 09:40 ALT 12 U/L (0-41) 05/11/25 09:40 Alkaline Phosphatase 113 U/L (40-130) 05/11/25 09:40 Troponin T Baseline 19 ng/L (0-15) H 05/11/25 09:40 Troponin T 120 Minute 15.64 ng/L (0-15) H 05/11/25 11:58 Delta Troponin T -3.36 ABS# (0-10) L 05/11/25 11:58 Total Protein 7.7 g/dL (6.6-8.7) 05/11/25 09:40 Albumin 3.8 g/dL (3.5-5.2) 05/11/25 09:40 Globulin 3.9 g/dL (1.3-4.6) 05/11/25 09:40 Urine Color Dark yellow (Yellow) A 05/11/25 11:30 Urine Appearance Cloudy (CLEAR) A 05/11/25 11:30 Urine pH 7.5 (5-7) 05/11/25 11:30 Ur Specific [place] 1.013 (1.005-1.030) 05/11/25 11:30 Urine Protein 2+ (Negative) A 05/11/25 11:30 Urine Glucose (UA) Negative (Normal) 05/11/25 11:30 Urine Ketones Trace (Negative) 05/11/25 11:30 Urine Blood Negative (Negative) 05/11/25 11:30 Urine Nitrate Negative (Negative) 05/11/25 11:30 Urine Bilirubin Negative (Negative) 05/11/25 11:30 Urine Urobilinogen 2.0 mg/dL (Negative) H 05/11/25 11:30 Ur Leukocyte Esterase Trace (Negative) A 05/11/25 11:30 Urine RBC 0-4 /hpf (0-2) H 05/11/25 11:30 Urine WBC 5-10 /hpf (0-5) H 05/11/25 11:30 Ur Squamous Epith Cells 0-4 /hpf (0-5) H 05/11/25 11:30 Amorphous Sediment Not Reportable 05/11/25 11:30 Urine Bacteria None /hpf (NONE) 05/11/25 11:30 Hyaline Casts 10-15 /lpf H 05/11/25 11:30 Fine Granular Casts 0-4 /lpf H 05/11/25 11:30 Urine Mucus None /hpf 05/11/25 11:30 Urine Opiates Screen Negative ng/mL (Negative) 05/11/25 11:30 Ur Barbiturates Screen Negative ng/mL (Negative) 05/11/25 11:30 Ur Phencyclidine Scrn Negative ng/mL (Negative) 05/11/25 11:30 Ur Amphetamines Screen Negative ng/mL (Negative) 05/11/25 11:30 U Benzodiazepines Scrn Negative ng/mL (Negative) 05/11/25 11:30 Urine Cocaine Screen Negative ng/mL (Negative) 05/11/25 11:30 U Marijuana (THC) Screen Negative ng/mL (Negative) 05/11/25 11:30 All radiology interpretation(s) finalized by discharge Discharge Plan Discharge Patient Disposition: Home Clinical Impression: Orthostatic hypotension Condition: Stable Prescriptions: Discontinued lisinopril 20 mg tablet 20 mg PO DAILY No Action hydroxyzine HCl 25 mg tablet 25 mg PO Q6H PRN (Reason: anxiety) Qty: 90 2RF promethazine 25 mg suppository 25 mg [place] Q8H PRN (Reason: Constipation) citalopram 20 mg tablet 20 mg PO DAILY methocarbamol 750 mg tablet 750 mg PO TID PRN (Reason: Muscle Spasm) Discharge Orders: Discharge ED (Routine); Ordered 05/11/25 Ordered By: Jose Waddell Referrals: Zhou Roque MD [Primary Care Provider, Family Practice] Discharge Diet: Usual diet Discharge Activity: Increase activity as tolerated Patient Instructions: Opioid Safety, Pain Management, Patient Portal & Holly Instructions Activity Restrictions/Additional Instructions: Thank you for choosing [facility] for your healthcare needs today. It is very important that you follow up as instructed or that you return to the Emergency Department should you have concerns or if your condition changes or worsens in any way. You were seen in the emergency room with complaints of weakness being lightheaded dizzy. You were noted to have low blood pressures this improved with you are given IV fluids. Recommended that you stop the lisinopril. CT of your head was negative for acute stroke your exam was also negative for signs of acute stroke. Your creatinine was slightly elevated this is likely result of volume depletion and taking the lisinopril. You did mention difficulty with swallowing and weight loss you should follow-up with your primary care doctor have this evaluated further as an outpatient. Print Language: Persian Coding Level of Care Code ED Experimental Welder for Lisset Rodriguez
[2025-05-11 10:08] LABS: INR 1.01 (0.8-1.2); Partial Thromboplastin Time 27.0 SECONDS (23.9-36.7); Prothrombin Time 14.00 SECONDS (12.1-14.9)
[2025-05-11 10:09] LABS: Alanine Aminotransferase 12 U/L (0-41); Albumin Level 3.8 g/dL (3.5-5.2); Alkaline Phosphatase 113 U/L (40-130); Anion Gap 13.8 (5-19); Aspartate Amino Transferase 12 U/L (0-40); Blood Urea Nitrogen 21 mg/dL (8-23); Calcium 9.6 mg/dL (8.5-10.5); Carbon Dioxide 29 mmol/L (22-29); Chloride 92 mmol/L (98-107); Creatinine Clr Calc Pharmacy 58.4343; Globulin 3.9 g/dL (1.3-4.6); Glucose 114 mg/dL (65-115); Osmolality Calculated 276 mOsm/kg (285-295); Potassium 3.8 mmol/L (3.5-5.1); Sodium 131 mmol/L (136-145); Total Protein 7.7 g/dL (6.6-8.7)
[2025-05-11 10:42] LABS: Troponin(5th) Baseline 19 ng/L (0-15)
[2025-05-11 11:43] LABS: Glucose Urine UA Negative (Normal); Nitrate Urine Negative (Negative); Specific Gravity, Urine 1.013 (1.005-1.030)
[2025-05-11 11:51] LABS: Add Urine Microscopic? YES
[2025-05-11 11:53] LABS: PCP Screen Urine Negative (Negative)
[2025-05-11 12:30] LABS: Troponin 5 2HR 15.64 ng/L (0-15)
[2025-05-11 12:33] LABS: Troponin 5 2HR Delta -3.36 ABS# (0-10)
== END 2025-05-11 13:23 | disposition home or self-care (01) ==
PROVIDERS: Emergency Provider Family Medicine; PCP Family Medicine
DX: I95.1 Orthostatic hypotension (principal); Z72.0 Tobacco use; I10 Essential (primary) hypertension
CPT/HCPCS: 36415; 36416; 70450; 80053; 80306; 81001; 82962; 84484; 85025; 85610; 85730; 93005; 96360; 96361; 99284; J7030

== ENCOUNTER 2025-09-14 19:34 | Emergency (ER) | payer OTHER, SELFPAY ==
--- OUTSIDE RECORDS SUMMARY | 2025-09-14 19:38 | XMS_ITS | Data Portability ---
Author Organization [facility]inder [facility] Address [address] [place] [address] Care Team Providers Care Hollock Maker Name Role Phone LANA ROQUE Primary Care Provider Assessment No assessment recorded. Plan of Treatment Reminders Order Date Submit Date Provider Last Modified By Organization Details Last Modified Time Details Appointments OFFICE VISIT 15 2024 04:00P M Lana Roque MD Not available Not available Not available Lab None recorded. Referral None recorded. Procedures None recorded. Surgeries None recorded. Imaging None recorded. Medication Orders citalopra m 20 mg tablet 2024 025 [facility], [address], [place], [address], 02/17/2025 17:01:52 ondansetr on HCl (PF) 4 mg/2 mL injection solution 2024 025 [email or web address] Not available 03/18/2025 16:49:42 promethaz ine 25 mg rectal supposito ry 2024 025 [facility], [address], [place], [address], 11/28/2024 17:28:24 dexametha sone sodium phosphate 10 mg/mL injection solution 2024 025 [email or web address] Not available 11/28/2024 17:15:03 azithromy wali 250 mg tablet 2024 025 [facility], [address], [place], [address], 11/28/2024 17:47:27 ondansetr on 4 mg disintegr ating tablet 2024 025 [email or web address] [facility], [address], [place], [address], 11/26/2024 16:50:38 Patient TargetsNo targets recorded. Patient InstructionsNo instructions recorded. Reason for Referral None Reported. Problems Name Problem SNOMED Code Status Onset Date Resolution Date Notes Provider Name and Address Organization Details Recorded Time Degenera tion of interver tebral disc 37155708 Active 2020 Degenerat jinny Disc Disease; DX: 2000; 3:28PM by Lila Hensley, Office Visit; Promoted; acuity set as *; Chel park [facility] 5 16:36:10 Ulcer of esophagu s 08669465 Completed 202011/17/2024 Ulcer Of Esophagus ; 3:30PM by Lila Hensley, Office Visit; Promoted; acuity set as *; Chel park [facility] 5 16:38:15 Smoker 26641207 Active 2020 Smoker; 3:30PM by Lila Hensley, Office Visit; Promoted; acuity set as *; Chel park [facility] 5 16:36:26 [facility] hyperten kajal 12978564 Active 2024 Chel park [facility] 5 16:38:27 Cerebrov ascular accident 505270382 Active 2024 Chel park [facility] 5 16:43:02 Lumbar radiculo pablo 436533606 Active 2024 TORI park [facility] 5 19:12:26 Anxiety 58906782 Active 2024 TORI park [facility] 19:12:02 Acute infectiv e gastroen teritis 68787139 Completed 202403/15/2025 Chel park [facility] 5 13:41:31 Severe major depressi on, single episode, without psychoti c features 99497731 Active 2024 Chel Sergio park [facility] [place] 13:41:57 Problem Notes None recorded. Medical Equipment None Reported. Allergies No known drug allergies Medications Name Sig Start Date Stop Date Status Note LastModified by Organization Details LastModified Time doxycycli ne hyclate 100 mg capsule TAKE 1 CAPSULE BY MOUTH TWICE DAILY FOR 4 WEEKS 11/17 completed Not Available Not Available Not Available azithromy wali 250 mg tablet TAKE 2 TABLETS (500 MG) BY ORAL ROUTE ONCE DAILY FOR 1 DAY THEN 1 TABLET (250 MG) BY ORAL ROUTE ONCE DAILY FOR 4 DAYS 11/28 completed Not Available Not Available Not Available citalopra m 10 mg tablet TAKE 1 TABLET BY MOUTH ONCE DAILY 02/17 completed Not Available Not Available Not Available promethaz ine 25 mg rectal supposito ry INSERT 1 SUPPOSIT ORY RECTALLY EVERY 8 HOURS NEEDED FOR NAUSEA AND VOMITING active Not Available Not Available No t Available lisinopri l 20 mg tablet TAKE 1 TABLET BY MOUTH ONCE DAILY active Not Available Not Available No t Available prednison e 20 mg tablet TAKE 3 TABLETS BY MOUTH ONCE DAILY FOR 5 DAYS 11/17 completed Not Available Not Available Not Available citalopra m 20 mg tablet Take 1 tablet by mouth once daily 2024 active Not Available Not Available Not Avai lable methocarb kinjal 750 mg tablet Take 1 tablet by mouth three times daily as needed 2024 active Not Available Not Available Not Avai lable lisinopri l 10 mg tablet TAKE 1 TABLET BY MOUTH ONCE DAILY (START FIRST) 11/20 completed Not Available Not Available Not Available hydroxyzi ne HCl 25 mg tablet TAKE 1 TABLET BY MOUTH THREE TIMES DAILY NEEDED active Not Available Not Available No t Available hydrochlo rothiazid e 25 mg tablet TAKE 1 TABLET BY MOUTH ONCE DAILY active Not Available Not Available No t Available ondansetr on 4 mg disintegr ating tablet DISSOLVE 1 TABLET IN MOUTH EVERY 6 HOURS NEEDED active Not Available Not Available No t Available dexametha sone sodium phosphate 10 mg/mL injection solution Take 1 mL by injectio n route. 11/28 completed Not Available Not Available Not Available doxycycli ne hyclate 100 mg tablet TAKE 1 TABLET BY MOUTH TWICE DAILY FOR 14 DAYS 11/17 completed Not Available Not Available Not Available citalopra m daily for a week, then one tab daily 11/17 completed Recorded 01/04/20 21 4:14PM by Elizabeth Gill MD, Office Visit; Refill Quantity : 30; Tablet; Not Available Not Available Not Available ondansetr on HCl (PF) 4 mg/2 mL injection solution Take 2 mL by injectio n route. 03/18 completed Not Available Not Available Not Available Vitals Date Recorded Body height Body mass index (BMI) Body weight Body temperature Respiratory rate Oxygen saturation Heart rate Systolic And Diastolic Provider Name and Address Organization Details Last Updated DateTime 5 175.26 cm 29.8 kg/m2 82326.6 6 g 96.9 [degF] 18 /min 97 % 90 /min 122/74 mm[Hg] Nicholas Leblanc [facility] 5 16:27:54 Date Recorded Body height Body mass index (BMI) Body weight Respiratory rate Oxygen saturation Heart rate Body temperature Systolic And Diastolic Provider Name and Address Organization Details Last Updated DateTime 5 175.26 cm 29.8 kg/m2 21907.6 6 g 18 /min 97 % 88 /min 97.8 [degF] 120/80 mm[Hg] PHANI RESENDIZ [facility] 5 17:11:35 Date Recorded Body height Body mass index (BMI) Body weight Body temperature Heart rate Oxygen saturation Systolic And Diastolic Provider Name and Address Organization Details Last Updated DateTime 5 175.26 cm 29.2 kg/m2 33105.2 9 g 97.5 [degF] 67 /min 98 % 170/98 mm[Hg] Anushka Bailey [facility] 5 16:42:02 Date Recorded Body height Body mass index (BMI) Body weight Oxygen saturation Heart rate Respiratory rate Body temperature Systolic And Diastolic Provider Name and Address Organization Details Last Updated DateTime 5 175.26 cm 27.2 kg/m2 58480 g 97 % 83 /min 18 /min 97.1 [degF] 114/78 mm[Hg] Chel Hill [facility] 5 16:48:00 Date Recorded Body height Body mass index (BMI) Body weight Oxygen saturation Heart rate Respiratory rate Body temperature Systolic And Diastolic Provider Name and Address Organization Details Last Updated DateTime 5 175.26 cm 25.8 kg/m2 30093.6 6 g 97 % 98 /min 16 /min 98.2 [degF] 96/60 mm[Hg] Vianca Deontevolodymyr [facility] 5 10:10:30 Social History Question Answer Notes LastModified by [employer] Details LastModified Time Tobacco Smoking Status Current Every Day Smoker [facility] 11/17/2024 16:28:30 What Was The Date Of Your Most Recent Tobacco Screening? 05/11/2025 [email or web address] Information not available 05/11/2025 Sex: Unknown Functional Status Question Answer Note LastModified by [employer] Details LastModified Time Do you use any illicit or recreational drugs? No [email or web address] Information not available 02/17/2025 What is your level of alcohol consumption? None [email or web address] Information not available 02/17/2025 Mental Status None recorded. Family History Nothing Reported Notes:mom metastatic lung, H [place] and dad prostate , HTN, diabetes, brain anur, Medical History Condition Response Coronary Artery Disease N Other N Gout N Kidney Stones N Blood Diseases N Hyperthyroidism N Breast Cancer N Blood Transfusion N Depression N Hypothyroidism N Lung Disease N COPD N Developmental or Behavioral Disorders N Defects or Inherited Disease N Breast Problem N Difficulty Swallowing N Anesthesia Complications N Anxiety Disorder Y Meniere's disease N Muscle, Joint, or Bone Problems Y Vision or Eye Problems N Arthritis N Infertility N Polyps N Cancer N Stroke Y Varicosities N Endometriosis N Bladder or Kidney Problems N High Cholesterol N Liver Disease N Fibromyalgia N Headaches N Kidney Disease N Allergies/Hayfever N Heart Problems N Ear or Hearing Problems N Hospitalizations N Thyroid Problems N GI Problems N ADD/ADHD N Skin Problems N Eating Disorder N Anemia N Constipation N Mental Illness N Ovarian Cancer N Diabetes N Bedwetting N Seizures/Epilepsy N Tuberculosis N Eczema N Diverticulitis N Abuse/Domestic Violence N Asthma N Reflux/GERD N Hepatitis N Heart Disease N Pulmonary Embolism N Pre-Eclampsia N Hypertension Y Chronic Ear Infections N Osteoporosis N Chicken Pox N Autism Spectrum Disorder (ASD) N Thrombophilias N Past Encounters Encounter ID Performer Location Encounter Start Date Encounter Closed Date Diagnosis/Indication Diagnosis SNOMED-CT Code Diagnosis ICD10 Code Diagnosis IMO Codes Diagnosis Note [id number] Lana Roque MD [facility] ([facility]) [address] [place] [phone] 5 11/17/2024 16:02:44 11/17/2024 17:04:54 Essential hypertension 86265931 I10 Refills provided for his blood pressure medication , but we will increase his lisinopril to 20 mg to help with better control.. The patient was encouraged to continue to monitor his blood pressure at home. Cerebrovas cular accident 902292603 I63.9 Patient states that he has not tolerated statins. Lumbar radiculopathy 128 682104 M54.16 Will start methocarba mol to help with muscle spasm. Will provide steroid injection Anxiety 84760532 F41.9 Continue citalopram and hydroxyzin e. [id number] Lana Roque MD [facility] ([facility]) [address] [place] [id number] 5 11/26/2024 16:16:49 11/26/2024 17:55:27 Lumbar radiculopathy 470745957 M54.16 Patient had good results from a steroid injection when he had back pain previously . The patient would like another injection today. Continue with current muscle relaxers. Acute infe ctive gastroenteritis 62257702 A09 Patient is not showing improvemen t. Will treat with azithromyc in and his nausea with Zofran. Continue to push fluids. Follow-up if symptoms do not improve. [id number] JYOTI HERRING [facility] ([facility]) [address] [place] [id number] 5 11/28/2024 17:04:29 11/28/2024 18:25:10 Nausea and vomiting 67241748 R11.2 IM zofran administer ed today for the nausea. Discussed using promethazi ne suppositor y for relief. Pt states he will try this. VSS. No signs of acute abd today. Has urinated 3-4 times today so no concern for dehydratio n. [id number] Lana Roque MD [facility] ([facility]) [address] [place] [address] [id number] 02/17/2025 16:34:11 02/19/2025 17:40:25 Severe major depression, single episode, without psychotic features 81361217 F32.2 [id number] The patient is presenting with severe symptoms of major depression disorder. And starting medication today. The patient was open to starting citalopram . Will follow-up in 1 month. [id number] Lana Roque MD [facility] ([facility]) [address] [place] [address] [id number] 5 03/18/2025 16:42:22 03/19/2025 08:34:12 Essential hypertension 58234778 I10 Blood pressure is doing significan tly better on his current medication s. Continue current meds and encouraged the patient to continue to monitor blood pressure at home. [id number] JYOTI SANDY [facility] ([facility]) [address] [place] [id number] 05/11/2025 10:02:16 05/11/2025 18:27:34 Numbness of upper limb 952181377 R20.0 [id number] Sent to ER for further evaluation and treatment. Brother is present and states that he will provide transporta tion. Report called to ER by nursing staff. Health Concerns Section Related Observation LastModified by Organization Detai ls LastModified Time None Recorded Concern Status LastModified by Organization Details LastModified Time None Recorded Advance Directives Directive None Recorded Payers Insurance Date Sequence Insurance Name Policy Number Policy Kitchen Covered Member ID Kitchen Member ID Guarantor Name 05/11/2025 1 R [id number] Samir Azar [id number] Samir Azar Notes Date Note Type Note Provider Name and Address Organization Details Recorded Time 11/26/2024 text/html Patient here today for body aches, fever, abdominal pain with N&V. Patient states that he has been symptomatic since 11/22/24. He is not eating or drinking much at all. He wants to discuss pain that he is having in the Left lower part of his back. He states that he feels like he injured it while throwing up. Lana Roque MD [address] [place], [phone], [facility], [facility]. 11/29/2024 09:24:24 11/28/2024 text/html VomitingReported by PatientHPI:For associated symptoms, patient reportsabdominal pain,fever, andchills. For severity, patient reportsmoderate. For duration, patient reports7 days.ROS as noted in the HPI Patient c/o nausea, vomiting, fever off and on and aches for a week. He was seen on Sunday and put on Azithromycin and Zofran but he is not getting any better. He's able to drink sips of Gatorade and Sprite before vomiting again.has been taking the zofran twice a day. Pt states he's 4-5 times today. no diarrhea. Has urinated 3-4 times today. JYOTI HERRING [address] [place], [phone], [facility], L[facility]uartL[facility]uartC. 11/28/2024 18:16:24 02/17/2025 text/html Is a 59-year-old gentleman that comes in today for evaluation. Pt states he is in a state of confusion. This morning he forgot the code to get back in to his home that he lived in for [address] now[address] He will drive to town and forget what he went to town for. He has noticed his emotions are changing as well, will tear up easier while watching a movie. Patient has had decreased desire to do things that he enjoys. Patient has difficulty concentrating and his energy is low. The patient has had decreased appetite. Lana Roque MD [address] [place] [address], [phone], [facility] 02/19/2025 16:44:54 03/18/2025 text/html Hypertension IM/FMReported by PatientHPIFor quality, patient reportshere for check-up. For severity, patient reportsnormal (<120/<80 mmhg). For alleviating factors, patient reportsmedication. patient here for a 1 month f/u on his blood pressure. The patient states that his blood pressure is doing significantly better on current medications. Lana Roque MD [address] [place] [address], [phone], [facility] 03/19/2025 10:59:19 05/11/2025 text/html ROS as noted in the HPI walk in patientpatient is here today for chest tinglingand numbness that radiates into his right arm, patient had a stroke in Aug and this feels the same , patient is a everyday smoker. Patient said that tingling started about a hour ago. Complains of right arma and leg weakness. JYOTI SANDY [address] [place] [address], [phone], [facility] 05/11/2025 17:12:12
[2025-09-14 19:48] VITALS: BP 172/106; PULSE 61; RESP 20; TEMP 36.4; O2SAT 100; BMI 26.6
--- NOTE | 2025-09-14 20:26 | XRR_ITS ---
PROCEDURE INFORMATION: Exam: XR Chest Exam date and time: 09/14/2025 8:28 PM Age: 60 years old Clinical indication: Cough and shortness of breath; Additional info: Coughing TECHNIQUE: Imaging protocol: Radiologic exam of the chest. Views: 1 view. COMPARISON: CR XR chest 1V portable [id number] 12/01/2024 10:47 PM FINDINGS: Lungs: See Heart/Mediastinum finding. Pleural spaces: Unremarkable. No pleural effusion. No pneumothorax. Heart/Mediastinum: Mild cardiomegaly, negative for infiltrate. Bones/joints: Unremarkable. XR/XR chest 1V portable [id number] IMPRESSION: Mild cardiomegaly, negative for infiltrate.
--- NOTE | 2025-09-14 20:35 | W.ED.NAVMDI ---
HPI - Nausea/Vomiting/Diarrhea General: Chief complaint: Nausea/Vomiting/Diarrhea Stated complaint: Possible Covid Time Seen by Provider: 09/14/25 19:51 Source: patient Mode of arrival: ambulatory Limitations: no limitations History of Present Illness: Patient is a 60-year-old male with past medical history of anxiety who presents to the emergency department with COVID-like symptoms. States that his brother has been vomiting at home, and patient overall has felt ill since . Took a home COVID test while at work today which was positive. Patient states that he has been nauseous and vomiting that has worsened since 1600 this afternoon. Patient states he has not gotten out of bed pretty much all day, has been coughing and felt short of breath. States that he has a history of a stroke last August but is not on any blood thinners. Denying any fevers but he states he has been having chills. No diarrhea. No abdominal pain or chest pain. MD elicited complaint: nausea and vomiting Onset (ago): day(s) Associated nausea: Yes Context: sick contacts Associated symtoms: Reports fatigue, malaise and nausea; Denies change in vision, chest pain, dysuria, headache(s) or palpitations Related Data Home Medications ?Medication ?Instructions ?Recorded ?Confirmed citalopram 20 mg tablet 20 mg PO DAILY 05/11/25 05/11/25 methocarbamol 750 mg tablet 750 mg PO TID PRN Muscle Spasm 05/11/25 05/11/25 promethazine 25 mg rectal 25 mg TN Q8H PRN Constipation 05/11/25 05/11/25 suppository Previous Rx's ?Medication ?Instructions ?Recorded hydroxyzine HCl 25 mg tablet 25 mg PO Q6H PRN anxiety #90 tabs 06/18/24 hydrocodone 5 mg-acetaminophen 325 1 tab PO Q8H PRN pain #14 tabs 09/14/25 mg tablet ondansetron 4 mg disintegrating 4 mg PO TID PRN nausea and 09/14/25 tablet vomiting #30 tabs Allergies Allergy/AdvReac Type Severity Reaction Status Date / Time No Known Allergies Allergy Verified 09/14/25 19:56 Review of Systems General: Reports: 10 or more systems reviewed and unremarkable except in HPI and below Const: Reports: chills, body aches, fatigue and malaise; Denies: fever(s) Eyes: Denies: change in vision ENMT: Denies: throat pain, ear or mastoid pain or nasal discharge Card: Denies: chest pain, palpitations, swelling of feet/ankles or lightheadedness Resp: Reports: non-productive cough; Denies: dyspnea, productive cough or wheezing GI: Reports: nausea and vomiting; Denies: abdominal pain, diarrhea or constipation : Denies: flank pain, difficulty urinating, dysuria or urinary frequency Musc: Denies: neck pain, back pain or joint pain Skin/Breast: Denies: rash Neuro: Denies: headache(s), numbness in extremities or weakness in extremities PFSH ED PFSH: Medical History Tinea corporis Nocturia Hypertension Anxiety Rash of face Social History Smoking and tobacco/nicotine status: current every day tobacco/nicotine user Alcohol intake: never Substance/Drug Use: never Adopted: No Physical Exam Const: COMMON NORMALS: no acute distress, patient oriented x3 and no limitations GENERAL APPEARANCE: cooperative, comfortable and well developed ORIENTATION/CONSCIOUSNESS: Yes awake, Yes oriented to person, Yes oriented to place and Yes oriented to time OTHER: tired appearing but nontoxic HENMT: COMMON NORMALS: normocephalic, atraumatic and hearing grossly normal bilaterally HEAD & SCALP: normocephalic and atraumatic Eye: COMMON NORMALS: Equal, round and reactive pupils present, EOMs intact bilaterally and conjunctivae normal CONJUNCTIVA: Yes conjunctivae normal PUPIL: Yes Equal, round and reactive pupils present Neck/C-Spine: COMMON NORMALS: full ROM, supple and no JVD Resp: COMMON NORMALS: normal respiratory effort, No retractions, No use of accessory muscles and clear to auscultation bilaterally AUSCULTATION: clear to auscultation bilaterally Cardio: COMMON NORMALS: no JVD, regular rate, regular rhythm, No clicks present (Cardio), No murmurs present (Cardio) and No rub (Cardio) RATE: regular rate RHYTHM: regular rhythm GI: COMMON NORMALS: Normal to inspection, nondistended, normoactive bowel sounds present, Soft to palpation and non-tender AUSCULTATION: Yes normoactive bowel sounds PALPATION: Yes Soft to palpation RECTAL EXAM: Yes deferred Extremity: COMMON NORMALS: normal to inspection, full ROM and capillary refill normal Neuro: COMMON NORMALS: patient oriented x3, moves all extremities, no focal motor deficits and no sensory deficits noted SENSORIUM/ORIENTATION: Yes oriented to person, Yes oriented to place and Yes oriented to time Skin: COMMON NORMALS: no rashes or lesions noted GENERAL SKIN EXAM: no rashes or lesions noted Course Vital Signs: Vital signs: Vital Signs Temperature 97.5 F L 09/14/25 19:48 Pulse Rate 50 L 09/14/25 22:18 Respiratory Rate 16 09/14/25 22:18 Blood Pressure 148/95 09/14/25 22:18 Pulse Oximetry 97 09/14/25 22:18 Oxygen Delivery Me thod Room Air 09/14/25 19:48 MDM - Nausea/Vomiting/Diarrhea Medical Decision Making Patient presented for evaluation, stating he was home COVID positive. Was having nausea vomiting, his primary concern is that he was vomiting has not had any vomiting past my examination. His lab work is all unremarkable, did confirm he is COVID-positive with testing here. He feels better after fluids, [place], and antiemetics. He will be held out of work as an encouraging quarantine precaution and rest and recovery, told to return with any symptoms of severe dehydration or respiratory distress, both of which are not present at this time with this current ER visit. Will treat at home, family endorses understanding to return precautions. Lab Data 09/14/25 20:42 09/14/25 20:42 Radiology Impressions Chest X-Ray 09/14/25 20:26 IMPRESSION: Mild cardiomegaly, negative for infiltrate. Laboratory Results WBC 10.07 10^3/uL (3.29-11.43) 09/14/25 20:42 RBC 6.13 10^6/uL (3.85-5.65) H 09/14/25 20:42 Hgb 18.80 g/dL (11.27-16.99) H 09/14/25 20:42 Hct 56.3 % (37-53) H 09/14/25 20:42 MCV 91.8 fl (82-101) 09/14/25 20:42 MCH 30.7 pg (27-33) 09/14/25 20:42 MCHC 33.4 g/dL (30-55) 09/14/25 20:42 RDW 13.2 % (12.1-15.1) 09/14/25 20:42 Plt Count 153 10^3/cmm (157-399) L 09/14/25 20:42 MPV 10.7 fL (7.4-10.4) H 09/14/25 20:42 Neut % (Auto) 85.2 % 09/14/25 20:42 Lymph % (Auto) 8.9 % 09/14/25 20:42 [place] % (Auto) 4.8 % 09/14/25 20:42 Eos % (Auto) 0.4 % 09/14/25 20:42 Baso % (Auto) 0.4 % 09/14/25 20:42 Neut # (Auto) 8.58 10^3/uL (1.8-7.7) H 09/14/25 20:42 Lymph # (Auto) 0.9 10^3/uL (0.8-4.8) 09/14/25 20:42 [place] # (Auto) 0.5 10^3/uL (0.2-0.9) 09/14/25 20:42 Eos # (Auto) 0.0 10^3/uL (0.0-0.8) 09/14/25 20:42 Baso # (Auto) 0.0 10^3/uL (0.0-0.1) 09/14/25 20:42 Nucleated RBC % (auto) 0 % 09/14/25 20:42 Nucleated RBCs # 0.0 /100WBC 09/14/25 20:42 Sodium 137 mmol/L (136-145) 09/14/25 20:42 Potassium 3.9 mmol/L (3.5-5.1) 09/14/25 20:42 Chloride 97 mmol/L (98-107) L 09/14/25 20:42 Carbon Dioxide 26 mmol/L (22-29) 09/14/25 20:42 Anion Gap 17.9 (5-19) 09/14/25 20:42 BUN 20 mg/dL (8-23) 09/14/25 20:42 Creatinine 1.0 mg/dL (0.7-1.2) 09/14/25 20:42 GFR Calculation 76.2 mL/min (90-130) L 09/14/25 20:42 Glucose 180 mg/dL (65-115) H 09/14/25 20:42 Calculated Osmolality 291 mOsm/kg (285-295) 09/14/25 20:42 Calcium 9.1 mg/dL (8.5-10.5) 09/14/25 20:42 Total Bilirubin 0.8 mg/dL (0.15-1.2) 09/14/25 20:42 AST 21 U/L (0-40) 09/14/25 20:42 ALT 22 U/L (0-41) 09/14/25 20:42 Alkaline Phosphatase 101 U/L (40-130) 09/14/25 20:42 Total Protein 7.2 g/dL (6.6-8.7) 09/14/25 20:42 Albumin 4.1 g/dL (3.5-5.2) 09/14/25 20:42 Globulin 3.1 g/dL (1.3-4.6) 09/14/25 20:42 Influenza A (PCR) Negative (Negative) 09/14/25 20:58 Influenza Type B (PCR) Negative (Negative) 09/14/25 20:58 RSV (PCR) Negative (Negative) 09/14/25 20:58 SARS-CoV-2 (PCR) Positive (Negative) A 09/14/25 20:58 All radiology interpretation(s) finalized by discharge Discharge Plan Discharge Patient Disposition: Home Clinical Impression: COVID-19 Condition: Stable Prescriptions: New ondansetron 4 mg tablet,disintegrating 4 mg PO TID PRN (Reason: nausea and vomiting) Qty: 30 0RF hydrocodone-acetaminophen 5-325 mg tablet 1 tab PO Q8H PRN (Reason: pain) Qty: 14 0RF No Action hydroxyzine HCl 25 mg tablet 25 mg PO Q6H PRN (Reason: anxiety) Qty: 90 2RF promethazine 25 mg suppository 25 mg TN Q8H PRN (Reason: Constipation) citalopram 20 mg tablet 20 mg PO DAILY methocarbamol 750 mg tablet 750 mg PO TID PRN (Reason: Muscle Spasm) Discharge Orders: Discharge ED (Routine); Ordered 09/14/25 Ordered By: Nicholas Ellis Referrals: Zhou Roque MD [Primary Care Provider, Family Practice] Patient Instructions: Patient Portal & Holyl Instructions Activity Restrictions/Additional Instructions: COVID-19 Discharge Instructions Your Diagnosis You have been diagnosed with COVID-19. Your laboratory tests and chest X-ray were normal, which is good news. You can safely recover at home with proper care and monitoring. Medications You have been prescribed two medications to help with your symptoms: - Ondansetron (Z[place]fr[place]): Take as directed for nausea and vomiting - Hydrocodone-acetaminophen 7.5?325 mg ([place]): Take as directed for severe body aches These prescriptions will be sent to your pharmacy. Please pick them up as soon as possible. Home Care Instructions Your treatment at home focuses on supportive care and preventing the spread of infection to others. Follow these guidelines: - Get plenty of rest - Drink fluids to stay hydrated - Monitor your temperature daily - Take your prescribed medications as directed - Use [id number] medications like acetaminophen or ibuprofen for fever and body aches (in addition to your prescribed medications if needed) Isolation at Home To protect others in your household, you should: - Stay in a separate room with good ventilation when possible - Wear a face mask when around other household members - Avoid close contact with family members - Eat meals separately from others - Practice good hand hygiene frequently - Avoid outdoor activities and do not go to work or public places When to Seek Emergency Care Go to the emergency department or call 911 if you develop any of these warning signs: - Difficulty breathing or shortness of breath - Persistent chest pain or pressure - New confusion or difficulty waking up - Bluish lips or face - Severe or worsening symptoms When to Call Your Doctor Contact your healthcare provider if: - Your symptoms are not improving after several days - You develop new or worsening symptoms - You have concerns about your medications - You need guidance about when you can safely end isolation Follow-Up Care You should follow up with your healthcare provider as directed. Some patients may benefit from monitoring after recovery, including assessment of lung function and overall well-being. Duration of Isolation You should isolate at home until you meet the following criteria: - You have had no fever for at least 3 days without using fever-reducing medications - Your respiratory symptoms have significantly improved - It has been at least 10 days since your symptoms first started Important Reminders - Make sure someone is available to help care for you at home if needed - Ensure that household members can follow recommended precautions to prevent spread of the virus - If you live with people at higher risk for severe COVID-19 (such as those over 65, young children, women, or people with chronic medical conditions), take extra precautions to avoid exposing them Questions? If you have any questions or concerns about your care, please contact your healthcare provider. Print Language: Citizen Of [place] Coding Level of Care Code ED Bottle Label Inspector for Lisset Rodriguez
[2025-09-14 20:53] LABS: Hematocrit 56.3 % (37-53); Hemoglobin 18.80 g/dL (11.27-16.99); Mean Corpuscular HGB Conc 33.4 g/dL (30-55); Mean Corpuscular Hemoglobin 30.7 pg (27-33); Mean Corpuscular Volume 91.8 fl (82-101); Nucleated Red Blood Cells % 0 %; Platelet Count 153 10^3/cmm (157-399); Red Blood Count 6.13 10^6/uL (3.85-5.65); White Blood Count 10.07 10^3/uL (3.29-11.43)
[2025-09-14] MEDS: HYDROcodone-acetaminophen 7.5-325 mg Tablet 1 TAB PO (21:08)
[2025-09-14] MEDS: ondansetron 2 mg/ML SDV 2 mL 4 MG IVP (21:08)
[2025-09-14 21:14] LABS: Alanine Aminotransferase 22 U/L (0-41); Albumin Level 4.1 g/dL (3.5-5.2); Alkaline Phosphatase 101 U/L (40-130); Anion Gap 17.9 (5-19); Aspartate Amino Transferase 21 U/L (0-40); Blood Urea Nitrogen 20 mg/dL (8-23); Calcium 9.1 mg/dL (8.5-10.5); Carbon Dioxide 26 mmol/L (22-29); Chloride 97 mmol/L (98-107); Globulin 3.1 g/dL (1.3-4.6); Glucose 180 mg/dL (65-115); Osmolality Calculated 291 mOsm/kg (285-295); Potassium 3.9 mmol/L (3.5-5.1); Sodium 137 mmol/L (136-145); Total Protein 7.2 g/dL (6.6-8.7)
[2025-09-14 21:16] VITALS: BP 154/101; PULSE 54; RESP 16; O2SAT 98
[2025-09-14 21:37] LABS: Respiratory Syncytial Virus Ce NEGATIVE (Negative)
[2025-09-14 22:10] LABS: SARS-CoV-2 PCR Positive (Negative)
[2025-09-14 22:18] VITALS: BP 148/95; PULSE 50; RESP 16; O2SAT 97
== END 2025-09-14 22:20 | disposition home or self-care (01) ==
PROVIDERS: Emergency Provider Physician Assistant; PCP Family Medicine
DX: U07.1 COVID-19 (principal); Z11.52 Encounter for screening for COVID-19; Z72.0 Tobacco use; I10 Essential (primary) hypertension
CPT/HCPCS: 36415; 71045; 80053; 85025; 87637; 96361; 96374; 99284; J2405; J7030; J9999